=== PATIENT | male | born 1945 | race Caucasian/White ===

== ENCOUNTER → 2019-11-18 10:36 | Outpatient (BNVA) | payer BC, SELFPAY | PROVIDERS: PCP Family Medicine; Visit Provider Otolaryngology | DX: H93.92 Unspecified disorder of left ear (principal); H92.02 Otalgia, left ear; J34.2 Deviated nasal septum | CPT/HCPCS: 99203; 99214 ==

== ENCOUNTER 2019-11-27 08:13 | Outpatient (CLI) | payer BC, SELFPAY ==
--- NOTE | 2019-11-27 08:21 | CT_ITS ---
WS: [id number] CT TEMPORAL BONES TECHNIQUE: Noncontrast CT of the temporal bones with coronal and sagittal reformatted images. CLINICAL INFORMATION: Ear problem COMPARISON: None. DLP: 1086.[address] scans at [facility] use at least one of these dose optimization techniques: automat ed exposure control; mA and/or kV adjustment per patient size (includes targeted exams where dose is matched to clinical indication); or iterative reconstruction. FINDINGS: Right mastoid air cells well aerated. Slight mucosal thickening left mastoid tip. Paranasal sinuses are well aerated. Mild mucosal thickening with scattered fluid in the ethmoid air cells. Fro ntal sinuses are well aerated. A few small retention cysts in the sphenoid sinuses. RIGHT: Mastoid air cells are well aerated. Normal external auditory canal. Ossicles are normal in appearance . Middle ear is well aerated. Normal tegmen tympani. Semicircular canals and cochlea are normal in ap pearance. Prussak's space is normal. Normal inner ear structures. Normal vestibular aqueduct. Facial nerve recess is normal. LEFT: Mucosal thickening left mastoid tip. Normal external auditory canal. Ossicles are normal in appearanc e. Middle ear is well aerated. Mild thickening along the inferior tympanic membrane likely inflammato ry. Normal tegmen tympani. Semicircular canals and cochlea are normal in appearance. Prussak's space is normal. Normal inner ear structures. Normal vestibular aqueduct. Facial nerve recess is normal. Visualized intracranial contents and posterior fossa are normal. CT/CT temporal bone wo con* [id number] IMPRESSION: 1. Right mastoid air cells are well aerated. Mild mucosal thickening left mast oid tip. 2. Inner ear structures are normal bilaterally. Middle ear is well aerated. 3. Normal ossicles bilaterally. 4. Mild mucosal thickening along the left hepatic membrane likely inflammatory . Right tympanic membrane is normal.
== END 2019-11-27 08:14 | disposition home or self-care (01) ==
LOC: CT 08:17
PROVIDERS: Family Provider Family Medicine; Visit Provider Otolaryngology
DX: H93.90 Unspecified disorder of ear, unspecified ear (principal)
CPT/HCPCS: 70480

== ENCOUNTER 2019-12-02 13:01 | Outpatient (CLI) | payer BC, SELFPAY ==
[2019-12-02 14:34] LABS: Alanine Aminotransferase 29 U/L (0-41); Albumin Level 4.3 g/dL (3.5-5.2); Alkaline Phosphatase 80 IU/L (40-130); Anion Gap 13.5 (5-19); Aspartate Amino Transferase 23 U/L (0-40); Blood Urea Nitrogen 15 mg/dL (8-23); Calcium 10.1 mg/dL (8.5-10.5); Carbon Dioxide 30 mmol/L (22-29); Chloride 96 mmol/L (98-107); Globulin 2.5 g/dL (1.3-4.6); Glucose 129 mg/dL (65-115); Potassium 3.5 mmol/L (3.5-5.1); Sodium 136 mmol/L (136-145); Total Bilirubin 0.7 mg/dL (0.15-1.2); Total Protein 6.8 g/dL (6.6-8.7)
--- NOTE | 2019-12-02 14:47 | ONC FU_ITS ---
Dr. Awan follow up note Patient: Gurdeep Marie < Unit #: [id number]: 1945 Dicatated By: Rivera Awan M.D.Date of Visit:Dec 02, 2019 Onc Med Follow-up/Prog Note History of Present Illness: Mr Marie is a 74-year-old gentleman with year-long history of progressive PSA level. He recently underwent TRUSP/biopsy on 04/04/2018 which showed 4 out of 12 cores positive, 100% of each core positive with [place] 4+3 and [place] 3+4 and [place] 4+4. At the time of diagnosis his PSA was 10.7. Subsequently patient underwent CT scan of the pelvis which shows no evidence of metastatic disease and also had bone scan which was negative for metastatic disease also. 3 monthly dose of Zoladex was started on 06/04/2018. Along with daily Casodex in a neoadjuvant fashion later on concurrent radiation therapy to prostate gland was added which he completed on 10/27/2018 And Casodex was discontinued on 12/01/2018 While continue with 3 monthly Zoladex Came for follow-up, denies any specific complaints except off and on night sweats otherwise tolerating Zoladex well. No fever or chills no nausea or vomiting no hematuria no dysuria. Medications: Advair Diskus (100-50 mcg/dose) Aerosol Powder, Breath Activated Inhalation PRN, Aspirin 1 (81 mg) Tablet Oral daily, Atorvastatin Calcium 1 Tablet (of 80 mg) Oral daily, Brimonidine Tartrate Solution Ophthalmic daily, Cetirizine HCl 1 Tablet (of 10 mg) Oral daily, hydroCHLOROthiazide 1 Tablet (of 25 mg) Oral daily, Latanoprost Solution Ophthalmic daily, ProAir HFA 2 puff(s) (of 108 (90 base) mcg/act) Aerosol, solution Inhalation PRN, Tamsulosin HCl 1 Capsule (of 0.4 mg) Oral daily, Valsartan 1 Tablet (of 160 mg) Oral daily Allergies: No Known Allergies. Review of Systems: Constitutional - Appetite is good and weight is stable. No fever, chills, hot flashes, or night sweats. Energy level is fair, ENMT - No sinus congestion/drainage. No mouth sores. No sore throat or difficulty swallowing, Hematologic/Lymphatic - No abnormal bruising or bleeding, Respiratory - No shortness of breath. No cough. No pleuritic pain or hemoptysis, Cardiovascular - No angina pain. No palpitations, Gastrointestinal - No nausea or vomiting. No heartburn or acid reflux. No diarrhea or constipation. No blood in the stool or black stools, Genitourinary (M) - No dysuria or hematuria. No urinary frequency. No urgency or incontinence, Musculoskeletal - No joint or bone pain, Neurologic - No headache or dizziness. No numbness/paresthesias or other focal neurologic symptoms, Psychiatric - No anxiety or depression. No insomnia. Vital Signs: Performed on Dec 02, 2019 14:03 Height - 71.00 in Weight - 214.4 lbs (LOW) BSA - 2.17 sq.m BMI - 29.90 Temperature - 97.7 F (LOW) Pulse - 77 /min Respiration - 18 /min BP - 131/78 mm(hg) O2 Sat - 97 % Pain - 0 Performance Status: 0 - Fully active, able to carry on all predisease activities without restrictions. (ECOG) Physical Examination: ENMT - No oral exudates, ulcers, masses, thrush or mucositis. Oropharynx clear. Tongue normal, Respiratory - Lungs are clear to auscultation without rhonchi or wheezing, Cardiovascular - Regular rate and rhythm of heart, Abdomen - Non-tender, non-distended, Good bowel sounds. No guarding or rebound tenderness. No pulsatile masses, Extremities - no edema. Lab/Imaging: Test performed on Sep 02, 2019 13:20 Sodium 137 mmol/L Potassium 3.8 mmol/L Chloride 99 mmol/L CO2 28 mmol/L Anion Gap 13.8 BUN 22 mg/dL Creatinine 0.9 mg/dL Cr Clearance (Est) 99.33 mL/min Glucose 123 mg/dl Calcium 9.8 mg/dL Protein, Total 7.0 g/dL Albumin 4.6 g/dL Globulin 2.4 gm/dL Bilirubin, Total 0.7 mg/dL ALT (SGPT) 28 U/L AST (SGOT) 23 U/L Alkaline Phosphatase 73 U/L PSA < 0.02 ng/mL Impression: Adenocarcinoma the prostate status post TRUSP/biopsy done on 04/04/2018 and final pathology report showed 4 out of 12 positive cores on with 100% involvement ( left lateral apex [place] score 4+3, left lateral mid and left lateral base [place] score 4+4, left apex [place] score 3+4) PSA was 10.7 the time of diagnosis T2 Nx Mx high risk e.g. large-volume and [place] [address] scan of abdomen pelvis done on 05/06/2018 showed no evidence of metastatic disease Bone scan done on 05/06/2018 showed no evidence of metastatic disease Mr Marie was started on combined androgen blockade with 3 month Zoladex and daily Casodex on 06/04/2018. His treatment plan is neoadjuvant and radiation treatment has included. He started radiation to the prostate on 08/25/2018 and.And conclude her radiation on 10/27/2018 And repeat PSA on on 12/02/2018 was 0.01 So daily Casodex was discontinued on 12/02/2018, while continued with 3 monthly dose of Zoladex Plan: Discussed with patient regarding his questionable concern, his lab including PSA, is pendin Clinically, there is no signs symptom suggestive of recurrence of disease, tolerating 3 monthly Zoladex well , but with expected side effects e.g. occasionally hot flashes otherwise tolerating well. We'll proceed with next 3 monthly dose today and then return to clinic in 3 months with CMP PSA Signed By: Rivera Awan M.D. <<Signature on File>>
[2019-12-02 14:56] LABS: Prostate Specific Antigen < 0.02 ng/mL (0-4)
[2019-12-02] MEDS: lidocaine 1% INJ 20 mL INJECTION (14:56)
[2019-12-02] MEDS: goserelin acetate 10.8 mg Implant IM (15:02)
--- NOTE | 2019-12-02 15:07 | ONCRAD EPV_ITS ---
Radiation Oncology Established Patient Visit Patient: Cris MR#: [id number] : 1945> Age: 74> Sex: Male> Dictated by: Dr. Hong Rodrigues Date of Service: 12/02/2019 Referring Physician(s) : Dr. David Miner Diagnosis: C61 - Malignant neoplasm of prostate, Diagnosed 04/04/2018 (Active) Stage X, T2a, N0, M0 Radiotherapy to Date: Course: Prostate Treatment Site: [id number] Ref. ID: [id number] Energy: 6X Dose/Fx (cGy): 180 #Fx: 25 / 25 Dose Correction (cGy): 0 Total Dose (cGy): 4,500 Start Date: 08/25/2018 End Date: 10/01/2018 Elapsed Days: 37 Course: Prostate Treatment Site: [id number] Ref. ID: [id number] Energy: 6X Dose/Fx (cGy): 200 #Fx: 5 / 5 Dose Correction (cGy): 0 Total Dose (cGy): 1,000 Start Date: 10/02/2018 End Date: 10/08/2018 Elapsed Days: 6 Course: Prostate Treatment Site: [id number] Ref. ID: [id number] Energy: 6X Dose/Fx (cGy): 200 #Fx: 4 / 4 Dose Correction (cGy): 0 Total Dose (cGy): 800 Start Date: 10/09/2018 End Date: 10/15/2018 Elapsed Days: 6 Course: Prostate Treatment Site: [id number] Ref. ID: [id number] Energy: 6X Dose/Fx (cGy): 200 #Fx: 8 / 8 Dose Correction (cGy): 0 Total Dose (cGy): 1,600 Start Date: 10/16/2018 End Date: 10/27/2018 Elapsed Days: 11 Chief Complaint / History of Present Illness: The patient is a 73 year old gentleman with a recently diagnosed T2a, N0, M0 adenocarcinoma of the prostate, [place] score 4+4, PSA 10.7 ng/ml, high risk disease. He received combination therapy with ADT + EBRT to a total dose of 79Gy. The patient is doing well. He notes urinary frequency and nocturia but denies dysuria, hematuria, incontinence, urgency, rectal irritation and bleeding. He continues ADT and has some fatigue but denies hot flash. His PSA today is pending. Last one was 0.02. Current Medications: Advair Diskus, aspirin, atorvastatin Calcium, brimonidine Tartrate, casodex, cetirizine HCl, hydroCHLOROthiazide, latanoprost, proAir HFA, tamsulosin HCl, valsartan. Allergies: No Known Allergies Current Complaints / Review of Systems: The 12 point review of system is negative except as described in the above history. Vital Signs: Performed on 12/02/2019 2:03 PM Height - 71.00 in, Weight - 214.4 lbs (low), BSA - 2.17 sq.m, BMI - 29.90, Temperature - 97.7 f (low), Pulse - 77 /min, Respiration - 18 /min, O2 Sat - 97 %, Pain - 0 and BP - 131/ 78 mm(hg). Physical Exam: General: Alert and oriented x 3. No acute distress. HEENT: Normocephalic, atraumatic. Extraocular Movements Intact: Pupils Equal, Round, Reactive to Light and Accommodation: Sclerae anicteric. Oral cavity is clear without lesions, masses or ulcers. NECK: Supple without supraclavicular or jugular lymphadenopathy. LUNGS: Clear to auscultation bilaterally without rales, rhonchi or wheeze. HEART: Regular rate and rhythm, normal S1 and S2 without murmur, gallop or rub. MUSCULOSKELETAL: No tenderness or percussion pain over the axial skeleton, scapulae or pelvis. ABDOMEN: Soft, nontender, nondistended without masses or organomegaly. Bowel sounds are present. EXTREMITIES: No peripheral edema is identified. Limited motor and sensory examination are grossly intact and symmetric bilaterally. NEUROLOGIC: Cranial nerves II ???XII are grossly intact. Normal sensation, strength 5/5 in all extremities, normal gait, no ataxia. Performance Status: ECOG 1 Lab: PSA pending Pathology: Adenocarcinoma of prostate Imaging: none pending Impression/plan: There is no evidence of recurrence or progression of disease and no evidence of late radiation toxicities. The patient will continue ADT. He will repeat PSA and follow up with us in 4 months. Signed by: 12/02/2019 3:06:24 PM <<Signature on File>> CPT Code: CPT Code: Signed By: Dr. Hong Rodrigues, 12/02/2019 3:06:25 PM <<Signature on File>>
== END 2019-12-02 13:02 | disposition home or self-care (01) ==
LOC: ONCMED 13:05
PROVIDERS: Absent Provider Radiology Radiation Oncology; Family Provider Family Medicine; Visit Provider Internal Medicine Hematology & Oncology
DX: C61 Malignant neoplasm of prostate (principal); Z79.818 Long term (current) use of other agents affecting estrogen receptors and estrogen levels; Z79.899 Other long term (current) drug therapy; Z92.3 Personal history of irradiation
CPT/HCPCS: 80053; 84153; 96372; 96402; 99213; 99214; J2001; J9202

== ENCOUNTER → 2019-12-03 13:48 | Outpatient (BNVA) | payer BC, SELFPAY | PROVIDERS: Family Provider Family Medicine; Visit Provider Otolaryngology | DX: H69.82 Other specified disorders of Eustachian tube, left ear (principal) | CPT/HCPCS: 99213; 99214 ==

== ENCOUNTER → 2019-12-09 06:01 | Day surgery (SDC) | payer BC, SELFPAY ==
[2019-12-08 14:40] VITALS: BMI 29.8
[2019-12-09 06:41] VITALS: BP 130/82; PULSE 61; RESP 18; TEMP 36.1; O2SAT 96
--- NOTE | 2019-12-09 06:42 | W.PM.OPSUD ---
Surgery/Procedure H&P Update DATE OF PROCEDURE: December 09, 2019 DATE H&P PERFORMED: 12/03/19 H&P UPDATE INFORMATION: I have reviewed H&P completed within last 30 days, I have examined patient prior to procedure and No changes to prior documentation PREOP DIAGNOSIS: eustachian tube dysfunction PLANNED PROCEDURE: Operation Date: 12/09/19 07:20 Proposed Procedures p Myringotomy and Tubes [id number] H69.82(Left) - Jerome Gómez MD
[2019-12-09] MEDS: sodium chloride 0.9% 1,000 ML 30 ML IV (06:44)
--- NOTE | 2019-12-09 07:43 | SUR.PREOP ---
patient not having procedure today. Pt will reschedule when he has a ride for post op.
== END ==
PROVIDERS: Family Provider Family Medicine; Visit Provider Otolaryngology
PROC: (CPT 69420; principal; 2019-12-09 07:20)
DX: Z53.9 Procedure and treatment not carried out, unspecified reason (principal)
CPT/HCPCS: 12345; J7030

== ENCOUNTER 2020-03-04 08:58 | Outpatient (CLI) | payer BC, SELFPAY ==
[2020-03-04 09:50] LABS: Prostate Specific Antigen < 0.02 ng/mL (0-4)
[2020-03-04 10:01] LABS: Alanine Aminotransferase 26 U/L (0-41); Albumin Level 4.2 g/dL (3.5-5.2); Alkaline Phosphatase 69 IU/L (40-130); Anion Gap 16.2 (5-19); Aspartate Amino Transferase 25 U/L (0-40); Blood Urea Nitrogen 14 mg/dL (8-23); Calcium 9.3 mg/dL (8.5-10.5); Carbon Dioxide 24 mmol/L (22-29); Chloride 108 mmol/L (98-107); Glucose 122 mg/dL (65-115); Osmolality Calculated 296 mOsm/kg (285-295); Potassium 4.2 mmol/L (3.5-5.1); Sodium 144 mmol/L (136-145); Total Bilirubin 0.4 mg/dL (0.15-1.2); Total Protein 6.2 g/dL (6.6-8.7)
--- NOTE | 2020-03-04 11:07 | ONC FU_ITS ---
Dr. Awan follow up note Patient: Gurdeep Marie Unit #: [id number]: 1945 Dicatated By: Rivera Awan M.D.Date of Visit:Mar 04, 2020 Onc Med Follow-up/Prog Note History of Present Illness: Mr Marie is a 75-year-old gentleman with year-long history of progressive PSA level. He recently underwent TRUSP/biopsy on 04/04/2018 which showed 4 out of 12 cores positive, 100% of each core positive with [place] 4+3 and [place] 3+4 and [place] 4+4. At the time of diagnosis his PSA was 10.7. Subsequently patient underwent CT scan of the pelvis which shows no evidence of metastatic disease and also had bone scan which was negative for metastatic disease also. 3 monthly dose of Zoladex was started on 06/04/2018. Along with daily Casodex in a neoadjuvant fashion later on concurrent radiation therapy to prostate gland was added which he completed on 10/27/2018 And Casodex was discontinued on 12/01/2018 While continue with 3 monthly Zoladex Came for follow-up, denies any specific complaints, no night sweats, no hot flashes, no fever or chills, no breast tenderness, no diarrhea or constipation, no abdominal pain, tolerating Zoladex well Medications: Advair Diskus (100-50 mcg/dose) Aerosol Powder, Breath Activated Inhalation PRN, Aspirin 1 (81 mg) Tablet Oral daily, Atorvastatin Calcium 1 Tablet (of 80 mg) Oral daily, Brimonidine Tartrate Solution Ophthalmic daily, Cetirizine HCl 1 Tablet (of 10 mg) Oral daily, hydroCHLOROthiazide 1 Tablet (of 25 mg) Oral daily, Latanoprost Solution Ophthalmic daily, ProAir HFA 2 puff(s) (of 108 (90 base) mcg/act) Aerosol, solution Inhalation PRN, Tamsulosin HCl 1 Capsule (of 0.4 mg) Oral daily, Valsartan 1 Tablet (of 160 mg) Oral daily Allergies: No Known Allergies. Review of Systems: Constitutional - Appetite is good and weight is stable. No fever, chills, hot flashes, or night sweats. Energy level is fair, ENMT - No sinus congestion/drainage. No mouth sores. No sore throat or difficulty swallowing, Hematologic/Lymphatic - No abnormal bruising or bleeding, Respiratory - No shortness of breath. No cough. No pleuritic pain or hemoptysis, Cardiovascular - No angina pain. No palpitations, Gastrointestinal - No nausea or vomiting. No heartburn or acid reflux. No diarrhea or constipation. No blood in the stool or black stools, Genitourinary (M) - No dysuria or hematuria. No urinary frequency. No urgency or incontinence, Musculoskeletal - No joint or bone pain, Neurologic - No headache or dizziness. No numbness/paresthesias or other focal neurologic symptoms, Psychiatric - No anxiety or depression. No insomnia. Vital Signs: Performed on Mar 04, 2020 10:45 Height - 71.00 in Weight - 221.0 lbs (HIGH) BSA - 2.20 sq.m BMI - 30.82 (HIGH) Temperature - 97.6 F (LOW) Pulse - 61 /min Respiration - 18 /min BP - 137/87 mm(hg) O2 Sat - 98 % Pain - 0 Performance Status: 0 - Fully active, able to carry on all predisease activities without restrictions. (ECOG) Physical Examination: ENMT - No mouth sores, no thrush, Respiratory - Lungs are clear, Cardiovascular - Regular rate and rhythm of heart, Abdomen - Soft, bowel sounds present. Extremities , no visible edema or rash Lab/Imaging: Test performed on Mar 04, 2020 09:15 Sodium 144 mmol/L Potassium 4.2 mmol/L Chloride 108 mmol/L CO2 24 mmol/L Anion Gap 16.2 BUN 14 mg/dL Creatinine 1.1 mg/dL Cr Clearance (Est) 82.2700 mL/min Glucose 122 mg/dL Calcium 9.3 mg/dL Protein, Total 6.2 g/dL Albumin 4.2 g/dL Globulin 2.0 g/dL Bilirubin, Total 0.4 mg/dL ALT (SGPT) 26 U/L AST (SGOT) 25 U/L Alkaline Phosphatase 69 IU/L PSA < 0.02 ng/mL Impression: Adenocarcinoma the prostate status post TRUSP/biopsy done on 04/04/2018 and final pathology report showed 4 out of 12 positive cores on with 100% involvement ( left lateral apex [place] score 4+3, left lateral mid and left lateral base [place] score 4+4, left apex [place] score 3+4) PSA was 10.7 the time of diagnosis T2 Nx Mx high risk e.g. 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 CT scan of abdomen pelvis done on 05/06/2018 showed no evidence of metastatic disease Bone scan done on 05/06/2018 showed no evidence of metastatic disease Mr Marie was started on combined androgen blockade with 3 month Zoladex and daily Casodex on 06/04/2018. His treatment plan is neoadjuvant and radiation treatment has included. He started radiation to the prostate on 08/25/2018 and.And conclude her radiation on 10/27/2018 And repeat PSA on on 12/02/2018 was 0.01 So daily Casodex was discontinued on 12/02/2018, while continued with 3 monthly dose of Zoladex Plan: Discussed with patient regarding his labs CMP with him normal limits PSA less than 0.2 Clinically, patient doing well with no signs symptom suggestive of disease progression, tolerating adjuvant therapy with 3 monthly Zoladex, well but with expected side effects. We will proceed with the next 3 monthly dose of Zoladex today and return to clinic in 3 months with PSA. Signed By: Rivera Awan M.D. <<Signature on File>>
[2020-03-04] MEDS: lidocaine 1% INJ 20 mL INJECTION (11:20)
[2020-03-04] MEDS: goserelin acetate 10.8 mg Implant IM (11:30)
== END 2020-03-04 08:59 | disposition home or self-care (01) ==
PROVIDERS: PCP Family Medicine; Visit Provider Internal Medicine Hematology & Oncology
DX: C61 Malignant neoplasm of prostate (principal); Z79.818 Long term (current) use of other agents affecting estrogen receptors and estrogen levels
CPT/HCPCS: 80053; 84153; 96372; 96402; 99214; J2001; J9202

== ENCOUNTER 2020-06-07 12:18 | Outpatient (CLI) | payer BC, SELFPAY ==
--- NOTE | 2020-06-07 14:46 | ONC FU_ITS ---
[facility] Patient Note Patient: Gurdeep Marie Unit #: [id number]: 1945 Dictated By: Keshawn SteinDate of Visit: Jun 07, 2020 Onc MED Follow-Up/Prog Note Chief Complaint: Prostrate cancer History of Present Illness: Mr Marie is a 75-year-old gentleman with year-long history of progressive PSA level. He recently underwent TRUSP/biopsy on 04/04/2018 which showed 4 out of 12 cores positive, 100% of each core positive with [place] 4+3 and [place] 3+4 and [place] 4+4. At the time of diagnosis his PSA was 10.7. Subsequently patient underwent CT scan of the pelvis which shows no evidence of metastatic disease and also had bone scan which was negative for metastatic disease also. 3 month dose of Zoladex was started on 06/04/2018. Along with daily Casodex in a neoadjuvant fashion. Later on, concurrent radiation therapy to prostate gland was added which he completed on 10/27/2018. Casodex was discontinued on 12/01/2018. He does continue with 3 monthly Zoladex. He has had no signs of disease progression and tolerates the Zoladex well. Mr. Marie is here today for follow-up. He is due for Zoladex today as well. He has no new concerns. He denies any fever or chills. He has had no mouth sores, sore throat or difficulty swallowing. He denies any changes with his breathing. He denies orthopnea. He states he has not had any chest pain or palpitations. He denies any changes with his urinary flow. He states the Flomax is working well for him with no changes. He denies any lower extremity edema. He denies any bone pain. 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 He states he sweats a lot with the gardening but it stays hydrated and is tolerated this well. He has no new concerns today. His ECOG is 0. Past Medical History: Asthma Hyperlipidemia Hypertension Past Surgical History: Back surgery x 2 Cataract excision Right toe Tonsillectomy Trusp Colonoscopy in 2017 Allergies: No Known Allergies. Medications: Advair Diskus (100-50 mcg/dose) Aerosol Powder, Breath Activated Inhalation PRN Aspirin 1 (81 mg) Tablet Oral daily Atorvastatin Calcium 1 Tablet (of 80 mg) Oral daily Brimonidine Tartrate Solution Ophthalmic daily Cetirizine HCl 1 Tablet (of 10 mg) Oral daily hydroCHLOROthiazide 1 Tablet (of 25 mg) Oral daily Latanoprost Solution Ophthalmic daily ProAir HFA 2 puff(s) (of 108 (90 base) mcg/act) Aerosol, solution Inhalation PRN Tamsulosin HCl 1 Capsule (of 0.4 mg) Oral daily Valsartan 1 Tablet (of 160 mg) Oral daily Family History: Mr. Marie's mother is : heart disease at age 84. Social History: Mr. Marie is and he is retired. Mr. Marie has never smoked. He drinks daily. Review Of Symptoms: Constitutional Denies fevers, chills, night sweats, excessive fatigue or weight loss. Allergic/Immunologic No reactions. Eyes Denies significant visual changes. No diplopia. No amaurosis. ENMT Denies changes in hearing, sore throat, mouth sores, difficulty or changes in swallowing ability, and/or sinus drainage. Endocrine No diabetes, thyroid disease or hormone replacement. Denies hot flashes or night sweats. Hematologic/Lymphatic Denies easy bruising or bleeding. The patient denies any tender or palpable lymph nodes. Respiratory Denies dyspnea on exertion, chest pain, cough or hemoptysis. Denies orthopnea. Cardiovascular Denies anginal chest pain, palpitations or orthopnea. Gastrointestinal Denies nausea, vomiting, diarrhea, GI bleeding, or constipation. Denies change in bowel habits and/or stool color, no heartburn or early satiety. Genitourinary (M) Denies hematuria, dysuria, increased frequency, urgency, hesitancy or incontinence. Musculoskeletal Denies joint pain, swelling or redness. No decreased range of motion. Integumentary Denies chronic rashes, inflammation, ulcerations or skin changes. Neurologic Denies headache, blurred vision, and no areas of focal weakness or numbness. Normal gait. No sensory problems. Psychiatric Denies insomnia, depression, estelle or mood swings. Vital Signs: Performed on Jun 07, 2020 14:19 Height - 71.00 in Weight - 216.6 lbs (LOW) BSA - 2.18 sq.m BMI - 30.21 (HIGH) Temperature - 98.3 F (LOW) Pulse - 67 /min Respiration - 20 /min BP - 139/86 mm(hg) O2 Sat - 97 % Pain - 0,0 - Fully active, able to carry on all predisease activities without restrictions. (ECOG) Physical Examination: Constitutional Alert, oriented, no acute distress. Skin pink, warm and dry. Head Normocephalic; atraumatic. Eyes Conjunctivae and sclerae are clear and without icterus. Pupils are reactive and equal. Neck Supple without masses or thyromegaly. No jugular venous distension. Hematologic/Lymphatic No petechiae or purpura. Respiratory Lungs are clear to auscultation without rhonchi or wheezing. Cardiovascular Regular rate and rhythm of heart without murmurs,clicks, gallops or rubs. Chest Chest is symmetric without chest wall deformities. Back/Spine Non-tender to palpation. Extremities No visible deformities, no cyanosis, clubbing or edema. Musculoskeletal No tenderness or swelling, normal range of motion without obvious weakness. Integumentary No rashes or lesions. Neurologic No sensory or motor deficits, normal cerebellar function, normal gait. Psychiatric Alert and oriented times three. Coherent speech. Verbalizes understanding of our discussions today. Laboratory:Test performed on Jun 07, 2020 12:28 PSA 0.010 ng/mL Test performed on Mar 04, 2020 09:15 Sodium 144 mmol/L Potassium 4.2 mmol/L Chloride 108 mmol/L CO2 24 mmol/L Anion Gap 16.2 BUN 14 mg/dL Creatinine 1.1 mg/dL Cr Clearance (Est) 82.2700 mL/min Glucose 122 mg/dL Calcium 9.3 mg/dL Protein, Total 6.2 g/dL Albumin 4.2 g/dL Globulin 2.0 g/dL Bilirubin, Total 0.4 mg/dL ALT (SGPT) 26 U/L AST (SGOT) 25 U/L Alkaline Phosphatase 69 IU/L Impression: Adenocarcinoma the prostate status post TRUSP/biopsy done on 04/04/2018 and final pathology report showed 4 out of 12 positive cores on with 100% involvement ( left lateral apex [place] score 4+3, left lateral mid and left lateral base [place] score 4+4, left apex [place] score 3+4) PSA was 10.7 the time of diagnosis T2 Nx Mx high risk e.g. large-volume and [place] [address] scan of abdomen pelvis done on 05/06/2018 showed no evidence of metastatic disease Bone scan done on 05/06/2018 showed no evidence of metastatic disease Mr Marie was started on combined androgen blockade with 3 month Zoladex and daily Casodex on 06/04/2018. His treatment plan is neoadjuvant and radiation treatment has included. He started radiation to the prostate on 08/25/2018 and.And conclude her radiation on 10/27/2018 And repeat PSA on on 12/02/2018 was 0.01 So daily Casodex was discontinued on 12/02/2018, while continued with 3 monthly dose of Zoladex. He has tolerated it well with no signs of disease progression. Plan: 1. Proceed with Zoladex today as scheduled. 2. PSA from today was reviewed in detail and discussed with Mr. Marie and a copy was given to him. He was 0.010. 3. Continue Flomax as it is working well for him. 4. We will plan to see him back in 3 months with CBC CMP PSA. 5. He states he is current on pneumonia shots but does not think he will pursue a flu shot this year. He states he will do the coronavirus shot if it becomes available. 6. He was directed to contact us in the interim should questions or problems arise. Signed By: Keshawn Stein-, AOCNP Rivera Awan MD <<Signature on File>>
[2020-06-07] MEDS: lidocaine 1% INJ 20 mL INJECTION (15:00)
[2020-06-07] MEDS: goserelin acetate 10.8 mg Implant IM (15:07)
== END 2020-06-07 12:19 | disposition home or self-care (01) ==
LOC: ONCMED 12:23
PROVIDERS: PCP Family Medicine; Visit Provider Nurse Practitioner
DX: C61 Malignant neoplasm of prostate (principal); E78.5 Hyperlipidemia, unspecified; I10 Essential (primary) hypertension; Z79.818 Long term (current) use of other agents affecting estrogen receptors and estrogen levels
CPT/HCPCS: 36415; 84153; 96372; 96402; 99214; J9202

== ENCOUNTER 2020-09-19 07:49 | Outpatient (CLI) | payer BC, SELFPAY ==
[2020-09-19 08:51] LABS: Basophils % 0.3 %; Eosinophils # 0.1 10^3/uL (0.0-0.8); Eosinophils % 1.4 %; Hematocrit 36.6 % (42.0-52.0); Hemoglobin 12.2 g/dL (11.7-16.6); Lymphocytes # 0.9 10^3/uL (0.8-4.8); Mean Corpuscular HGB Conc 33.3 g/dL (30.0-36.0); Mean Corpuscular Hemoglobin 30.6 pg (28.0-34.0); Mean Corpuscular Volume 91.7 fL (80-94); Mean Platelet Volume 10.8 fL (7.4-10.4); Monocytes # 0.5 10^3/uL (0.2-0.9); Monocytes % 8.5 %; Neutrophils # 4.26 10^3/uL (1.8-7.7); Neutrophils % 74.3 %; Nucleated Red Blood Cells % 0 %; Platelet Count 156 10^3/cmm (130-400); Red Blood Count 3.99 10^6/uL (4.1-5.3); Red Cell Distribution Width 13.4 % (12.1-15.1); White Blood Count 5.7 10^3/uL (4.0-10.0)
[2020-09-19 09:07] LABS: Alanine Aminotransferase 37 U/L (0-41); Albumin Level 4.2 g/dL (3.5-5.2); Alkaline Phosphatase 67 IU/L (40-130); Anion Gap 12.1 (5-19); Aspartate Amino Transferase 27 U/L (0-40); Blood Urea Nitrogen 19 mg/dL (8-23); Calcium 9.5 mg/dL (8.5-10.5); Carbon Dioxide 29 mmol/L (22-29); Chloride 102 mmol/L (98-107); Globulin 2.2 g/dL (1.3-4.6); Glucose 116 mg/dL (65-115); Osmolality Calculated 291 mOsm/kg (285-295); Potassium 4.1 mmol/L (3.5-5.1); Sodium 139 mmol/L (136-145); Total Bilirubin 0.7 mg/dL (0.15-1.2); Total Protein 6.4 g/dL (6.6-8.7)
[2020-09-19 09:53] LABS: Prostate Specific Antigen < 0.006 ng/mL (0-4)
--- NOTE | 2020-09-19 10:26 | ONC FU_ITS ---
Dr. Awan follow up note Patient: Gurdeep Marie Unit #: [id number]: 1945 Dicatated By: Rivera Awan M.D.Date of Visit:Sep 19, 2020 Onc Med Follow-up/Prog Note History of Present Illness: Mr Marie is a 75-year-old gentleman with year-long history of progressive PSA level. He recently underwent TRUSP/biopsy on 04/04/2018 which showed 4 out of 12 cores positive, 100% of each core positive with Riner 4+3 and Riner 3+4 and Riner 4+4. At the time of diagnosis his PSA was 10.7. Subsequently patient underwent CT scan of the pelvis which shows no evidence of metastatic disease and also had bone scan which was negative for metastatic disease also. 3 month dose of Zoladex was started on 06/04/2018. Along with daily Casodex in a neoadjuvant fashion. Later on, concurrent radiation therapy to prostate gland was added which he completed on 10/27/2018. Casodex was discontinued on 12/01/2018. He does continue with 3 monthly Zoladex. He has had no signs of disease progression and tolerates the Zoladex well. Came for follow-up, denies any specific complaints, no fever chills, no nausea or vomiting, no diarrhea or constipation, occasionally hot flashes otherwise tolerating Zoladex very well . Medications: Advair Diskus (100-50 mcg/dose) Aerosol Powder, Breath Activated Inhalation PRN, Aspirin 1 (81 mg) Tablet Oral daily, Atorvastatin Calcium 1 Tablet (of 80 mg) Oral daily, Brimonidine Tartrate Solution Ophthalmic daily, Cetirizine HCl 1 Tablet (of 10 mg) Oral daily, hydroCHLOROthiazide 1 Tablet (of 25 mg) Oral daily, Latanoprost Solution Ophthalmic daily, ProAir HFA 2 puff(s) (of 108 (90 base) mcg/act) Aerosol, solution Inhalation PRN, Tamsulosin HCl 1 Capsule (of 0.4 mg) Oral daily, Valsartan 1 Tablet (of 160 mg) Oral daily Allergies: No Known Allergies. Review of Systems: Constitutional - Appetite is good and weight is stable. No fever, chills, hot flashes, or night sweats. Energy level is fair, ENMT - No sinus congestion/drainage. No mouth sores. No sore throat or difficulty swallowing, Hematologic/Lymphatic - No abnormal bruising or bleeding, Respiratory - No shortness of breath. No cough. No pleuritic pain or hemoptysis, Cardiovascular - No angina pain. No palpitations, Gastrointestinal - No nausea or vomiting. No heartburn or acid reflux. No diarrhea or constipation. No blood in the stool or black stools, Genitourinary (M) - No dysuria or hematuria. Positve for urinary frequency. No urgency or incontinence, Musculoskeletal - No joint or bone pain, Neurologic - No headache or dizziness. No numbness/paresthesias or other focal neurologic symptoms, Psychiatric - No anxiety or depression. No insomnia. Vital Signs: Performed on Sep 19, 2020 10:03 Height - 71.00 in Weight - 218.2 lbs (HIGH) BSA - 2.19 sq.m BMI - 30.43 (HIGH) Temperature - 97.2 F (LOW) Pulse - 63 /min Respiration - 18 /min BP - 145/83 mm(hg) (HIGH) O2 Sat - 98 % Pain - 0 Performance Status: 0 - Fully active, able to carry on all predisease activities without restrictions. (ECOG) Physical Examination: ENMT - No mouth sores, no thrush, no jaundice, Respiratory - Lungs are clear to auscultation, Cardiovascular - Regular rate and rhythm of heart, Abdomen - Soft, bowel sounds present, Extremities - No visible edema or rash. Lab/Imaging: Test performed on Sep 19, 2020 08:18 Sodium 139 mmol/L Potassium 4.1 mmol/L Chloride 102 mmol/L CO2 29 mmol/L Anion Gap 12.1 BUN 19 mg/dL Creatinine 1.2 mg/dL Cr Clearance (Est) 74.4600 mL/min Glucose 116 mg/dL Osmolality - Calculated 291 mOsm/kg Calcium 9.5 mg/dL Protein, Total 6.4 g/dL Albumin 4.2 g/dL Globulin 2.2 g/dL Bilirubin, Total 0.7 mg/dL ALT (SGPT) 37 U/L AST (SGOT) 27 U/L Alkaline Phosphatase 67 IU/L WBC 5.7 10 3/uL RBC 3.99 10 6/uL HGB 12.2 g/dL HCT 36.6 % MCV 91.7 fL MCH 30.6 pg MCHC 33.3 g/dL RDW 13.4 % Platelet Count 156 10 3/cmm MPV 10.8 fL Neutrophils 4.26 10 3/uL Lymphocytes 0.9 10 3/uL Monocytes 0.5 10 3/uL Eosinophils 0.1 10 3/uL Basophils 0.0 10 3/uL Neutrophil % 74.3 % Lymphocyte % 15.0 % Monocyte % 8.5 % Eosinophil % 1.4 % Basophils % 0.3 % NRBC % 0 % PSA < 0.006 ng/mL Impression: Adenocarcinoma the prostate status post TRUSP/biopsy done on 04/04/2018 and final pathology report showed 4 out of 12 positive cores on with 100% involvement ( left lateral apex Alma score 4+3, left lateral mid and left lateral base Riner score 4+4, left apex Riner score 3+4) PSA was 10.7 the time of diagnosis T2 Nx Mx high risk e.g. large-volume and Riner 8 L[address]ENSED PROSTHETIST/ORTHOTIST. CT scan of abdomen pelvis done on 05/06/2018 showed no evidence of metastatic disease Bone scan done on 05/06/2018 showed no evidence of metastatic disease Mr Marie was started on combined androgen blockade with 3 month Zoladex and daily Casodex on 06/04/2018. His treatment plan is neoadjuvant and radiation treatment has included. He started radiation to the prostate on 08/25/2018 and.And conclude her radiation on 10/27/2018 And repeat PSA on on 12/02/2018 was 0.01 So daily Casodex was discontinued on 12/02/2018, while continued with 3 monthly dose of Zoladex. He has tolerated it well with no signs of disease progression. Plan: Discussed with patient regarding his labs white blood count 5.7 hemoglobin 12.2 hematocrit 36.6 platelets 156,000 CMP within normal limits except creatinine 1.2 and PSA is less than 0.006 compared to 0.10 on June 07, 2020 Clinically, patient is doing well with no new signs symptoms suggestive of disease progression his follow-up lab work-up shows further improvement in his PSA level and mild renal insufficiency. We will continue with the next 3 monthly Zoladex today and then he will return to clinic in 3 months with a PSA. Signed By: Rivera Awan M.D. <<Signature on File>>
[2020-09-19] MEDS: lidocaine 1% INJ 20 mL INJECTION (10:30)
[2020-09-19] MEDS: goserelin acetate 10.8 mg Implant IM (10:40)
== END 2020-09-19 07:50 | disposition home or self-care (01) ==
LOC: ONCMED 07:51
PROVIDERS: PCP Family Medicine; Visit Provider Internal Medicine Hematology & Oncology
DX: C61 Malignant neoplasm of prostate (principal); N28.9 Disorder of kidney and ureter, unspecified; Z79.818 Long term (current) use of other agents affecting estrogen receptors and estrogen levels
CPT/HCPCS: 80053; 84153; 85025; 86900; 96372; 96402; 99214; J9202

== ENCOUNTER 2020-12-20 10:52 | Outpatient (CLI) | payer BC, SELFPAY ==
[2020-12-20 12:24] LABS: Prostate Specific Antigen 0.006 ng/mL (0-4)
[2020-12-20] MEDS: lidocaine 1% INJ 20 mL INJECTION (13:05)
[2020-12-20] MEDS: goserelin acetate 10.8 mg Implant IM (13:20)
--- NOTE | 2020-12-20 13:29 | ONC FU_ITS ---
[facility] Patient Note Patient: Gurdeep Marie Unit #: [id number]: 1945 Dictated By: Keshawn SteinDate of Visit: Dec 20, 2020 Onc MED Follow-Up/Prog Note Chief Complaint: Prostrate cancer History of Present Illness: Mr Marie is a 75-year-old gentleman with year-long history of progressive PSA level. He recently underwent TRUSP/biopsy on 04/04/2018 which showed 4 out of 12 cores positive, 100% of each core positive with Wausa 4+3 and Alma 3+4 and Wausa 4+4. At the time of diagnosis his PSA was 10.7. Subsequently patient underwent CT scan of the pelvis which shows no evidence of metastatic disease and also had bone scan which was negative for metastatic disease also. 3 month dose of Zoladex was started on 06/04/2018. Along with daily Casodex in a neoadjuvant fashion. Later on, concurrent radiation therapy to prostate gland was added which he completed on 10/27/2018. Casodex was discontinued on 12/01/2018. He does continue with 3 monthly Zoladex. He has had no signs of disease progression and tolerates the Zoladex well. Mr Marie is here today for followup. He has no new concerns today. He has had some lower chavez pain for about 3 days but that has, resolved on its own. He states he been working out in the yard and may have just hit it and not known it . He has had some muscle aches intermittently but that too has settled down currently. He denies any new shortness of breath orthopnea. He denies any nausea or vomiting. He has had no headaches or vision changes. He denies any bone pain. He states his breathing is normal for him. He states he does have some urinary frequency at night that comes and goes. We did discuss his medication regimen and noted that he does take HCTZ. He states that he does forget it in the morning sometimes and takes it at night. I encouraged him to try to take it no later than 2 or 3 as this may be affecting his urinary patterns at night. He verbalized understanding. He denies any lower extremity edema. He denies any changes in his bowel habits. His ECOG is 0. Past Medical History: Asthma Hyperlipidemia Hypertension Past Surgical History: Back surgery x 2 Cataract excision Right toe Tonsillectomy Trusp Colonoscopy in 2017 Allergies: No Known Allergies. Medications: Advair Diskus (100-50 mcg/dose) Aerosol Powder, Breath Activated Inhalation PRN Aspirin 1 (81 mg) Tablet Oral daily Atorvastatin Calcium 1 Tablet (of 80 mg) Oral daily Brimonidine Tartrate Solution Ophthalmic daily Cetirizine HCl 1 Tablet (of 10 mg) Oral daily hydroCHLOROthiazide 1 Tablet (of 25 mg) Oral daily Latanoprost Solution Ophthalmic daily ProAir HFA 2 puff(s) (of 108 (90 base) mcg/act) Aerosol, solution Inhalation PRN Tamsulosin HCl 1 Capsule (of 0.4 mg) Oral daily Valsartan 1 Tablet (of 160 mg) Oral daily Family History: Mr. Marie's mother is : heart disease at age 84. Social History: Mr. Marie is and he is retired. Mr. Marie has never smoked. He drinks daily. Review Of Symptoms: Constitutional Denies fevers, chills, night sweats, excessive fatigue or weight loss. Allergic/Immunologic No reactions. Eyes Denies significant visual changes. No diplopia. No amaurosis. ENMT Denies changes in hearing, sore throat, mouth sores, difficulty or changes in swallowing ability, and/or sinus drainage. Endocrine No diabetes, thyroid disease or hormone replacement. Denies hot flashes or night sweats. Hematologic/Lymphatic Denies easy bruising or bleeding. The patient denies any tender or palpable lymph nodes. Respiratory Denies dyspnea on exertion, chest pain, cough or hemoptysis. Denies orthopnea. Cardiovascular Denies anginal chest pain, palpitations or orthopnea. Gastrointestinal Denies nausea, vomiting, diarrhea, GI bleeding, or constipation. Denies change in bowel habits and/or stool color, no heartburn or early satiety. Genitourinary (M) Denies hematuria, dysuria, increased frequency, urgency, hesitancy or incontinence. Some urinary frequency at hs but not new and no worse than normal. Musculoskeletal Denies joint pain, swelling or redness. No decreased range of motion. Integumentary Denies chronic rashes, inflammation, ulcerations or skin changes. Neurologic Denies headache, blurred vision, and no areas of focal weakness or numbness. Normal gait. No sensory problems. Psychiatric Denies insomnia, depression, estelle or mood swings. Vital Signs: Performed on Dec 20, 2020 12:33 Height - 71.00 in Weight - 221.2 lbs (HIGH) BSA - 2.20 sq.m BMI - 30.85 (HIGH) Temperature - 97.3 F (LOW) Pulse - 68 /min Respiration - 17 /min BP - 117/77 mm(hg) O2 Sat - 98 % Pain - 0,0 - Fully active, able to carry on all predisease activities without restrictions. (ECOG) Physical Examination: Abdomen Non-tender, non-distended, no masses or ascites. Good bowel sounds noted in all quads. No guarding or rebound tenderness. No pulsatile masses. Constitutional Alert, oriented, no acute distress. Skin pink, warm and dry. Head Normocephalic; atraumatic. Eyes Conjunctivae and sclerae are clear and without icterus. Pupils are reactive and equal. Neck Supple without masses or thyromegaly. No jugular venous distension. Hematologic/Lymphatic No petechiae or purpura. Respiratory Lungs are clear to auscultation without rhonchi or wheezing. Cardiovascular Regular rate and rhythm of heart without murmurs,clicks, gallops or rubs. Back/Spine Non-tender to palpation. Extremities No visible deformities, no cyanosis, clubbing or edema. Musculoskeletal No tenderness or swelling, normal range of motion without obvious weakness. Integumentary No rashes or lesions. Neurologic No sensory or motor deficits, normal cerebellar function, normal gait. Psychiatric Alert and oriented times three. Coherent speech. Verbalizes understanding of our discussions today. Laboratory:Test performed on Dec 20, 2020 11:10 PSA 0.006 ng/mL Test performed on Sep 19, 2020 09:44 ABO & Rh Type # 2 Test Not Performed NO SPECIMEN RECEIVED Test performed on Sep 19, 2020 08:18 Sodium 139 mmol/L Potassium 4.1 mmol/L Chloride 102 mmol/L CO2 29 mmol/L Anion Gap 12.1 BUN 19 mg/dL Creatinine 1.2 mg/dL Cr Clearance (Est) 74.4600 mL/min Glucose 116 mg/dL Osmolality - Calculated 291 mOsm/kg Calcium 9.5 mg/dL Protein, Total 6.4 g/dL Albumin 4.2 g/dL Globulin 2.2 g/dL Bilirubin, Total 0.7 mg/dL ALT (SGPT) 37 U/L AST (SGOT) 27 U/L Alkaline Phosphatase 67 IU/L WBC 5.7 10 3/uL RBC 3.99 10 6/uL HGB 12.2 g/dL HCT 36.6 % MCV 91.7 fL MCH 30.6 pg MCHC 33.3 g/dL RDW 13.4 % Platelet Count 156 10 3/cmm MPV 10.8 fL Neutrophils 4.26 10 3/uL Lymphocytes 0.9 10 3/uL Monocytes 0.5 10 3/uL Eosinophils 0.1 10 3/uL Basophils 0.0 10 3/uL Neutrophil % 74.3 % Lymphocyte % 15.0 % Monocyte % 8.5 % Eosinophil % 1.4 % Basophils % 0.3 % NRBC % 0 % Impression: Adenocarcinoma the prostate status post TRUSP/biopsy done on 04/04/2018 and final pathology report showed 4 out of 12 positive cores on with 100% involvement ( left lateral apex Wausa score 4+3, left lateral mid and left lateral base Wausa score 4+4, left apex Wausa score 3+4) PSA was 10.7 the time of diagnosis T2 Nx Mx high risk e.g. large-volume and Alma [address] scan of abdomen pelvis done on 05/06/2018 showed no evidence of metastatic disease Bone scan done on 05/06/2018 showed no evidence of metastatic disease Mr Marie was started on combined androgen blockade with 3 month Zoladex and daily Casodex on 06/04/2018. His treatment plan is neoadjuvant and radiation treatment has included. He started radiation to the prostate on 08/25/2018 and completed radiation on 10/27/2018. His followup PSA on on 12/02/2018 was 0.01. So daily Casodex was discontinued on 12/02/2018, while continued with 3 monthly dose of Zoladex. He has tolerated it well with no signs of disease progression. Plan: PROBLEMS ADDRESSED TODAY 1. Prostate cancer with NO evidence of bone disease per bone scan from 05/06/2018. A. He is currently undergoing androgen deprivation with every 3-month Zoladex. He began combination daily Casodex and Zoladex on June 04, 2018. He has completed radiation to the prostate on October 27, 2018. His PSA at the time of diagnosis was 10.7 and after starting the Zoladex and Casodex as well as the radiation his follow-up PSA in November 2018 was 0.1. He has continued with every 3-month Zoladex and tolerated it well. The Casodex was stopped in November 2018. He has had no evidence of disease progression and his PSA continues to be suppressed. His PSA as of September 19, 2020 was <.006. A. Proceed with Zoladex 10.8 mg on a 3-month schedule. He is due today. B. His PSA was reviewed today and discussed with Mr. Marie and a copy was given to him. His result today is 0.006. C. He has had no evidence of disease progression and he is asymptomatic. D. I have asked for a vitamin D level with his next visit as he has had some intermittent myalgia. He also has androgen deprivation and is high risk for osteoporosis he may need DEXA scanning in the 2. Follow-up plan A. We will plan to see him back in 3 months with CBC CMP PSA and vitamin D level as requested above. B. He will be due for Zoladex 10.8 mg at that time as well. C. Mr. Marie was encouraged to watch taking his HCTZ later than 2 or 3:00 in the afternoon as he has had some increased urinary frequency at night as I forget to take my blood pressure medicine including the HCTZ in the morningand sometimes take it at night . D. Mr. Marie was instructed to contact us in the interim should questions or problems arise. E. I have asked that he see Dr Awan on his next followup as he is inquiring how long he will need to be on the Zoladex. He began his first treatment on 06/04/2018. Signed By: Keshawn Stein-, AOCNP Rivera Awan MD <<Signature on File>>
== END 2020-12-20 10:53 | disposition home or self-care (01) ==
PROVIDERS: Internal Medicine Hematology & Oncology; PCP Family Medicine; Visit Provider Nurse Practitioner
DX: C61 Malignant neoplasm of prostate (principal); M79.10 Myalgia, unspecified site; R35.0 Frequency of micturition; Z79.818 Long term (current) use of other agents affecting estrogen receptors and estrogen levels; Z79.899 Other long term (current) drug therapy; Z92.3 Personal history of irradiation
CPT/HCPCS: 36415; 84153; 96372; 96402; 99214; J9202

== ENCOUNTER 2021-03-14 11:50 | Outpatient (CLI) | payer BC, SELFPAY ==
[2021-03-14 12:25] LABS: Basophils % 0.3 %; Eosinophils # 0.1 10^3/uL (0.0-0.8); Eosinophils % 2.2 %; Hematocrit 36.6 % (42.0-52.0); Hemoglobin 12.3 g/dL (11.7-16.6); Lymphocytes % 15.2 %; Mean Corpuscular HGB Conc 33.6 g/dL (30.0-36.0); Mean Corpuscular Hemoglobin 30.5 pg (28.0-34.0); Mean Corpuscular Volume 90.8 fL (80-94); Mean Platelet Volume 10.4 fL (7.4-10.4); Monocytes # 0.5 10^3/uL (0.2-0.9); Monocytes % 7.6 %; Neutrophils # 4.71 10^3/uL (1.8-7.7); Neutrophils % 74.4 %; Nucleated Red Blood Cells % 0 %; Platelet Count 162 10^3/cmm (130-400); Red Blood Count 4.03 10^6/uL (4.1-5.3); Red Cell Distribution Width 13.2 % (12.1-15.1); White Blood Count 6.3 10^3/uL (4.0-10.0)
[2021-03-14 13:20] LABS: Prostate Specific Antigen < 0.006 ng/mL (0-4)
[2021-03-14 13:25] LABS: Alanine Aminotransferase 30 U/L (0-41); Albumin Level 4.2 g/dL (3.5-5.2); Alkaline Phosphatase 59 IU/L (40-130); Anion Gap 12.5 (5-19); Aspartate Amino Transferase 25 U/L (0-40); Blood Urea Nitrogen 22 mg/dL (8-23); Calcium 8.8 mg/dL (8.5-10.5); Carbon Dioxide 28 mmol/L (22-29); Chloride 102 mmol/L (98-107); Glucose 151 mg/dL (65-115); Osmolality Calculated 294 mOsm/kg (285-295); Potassium 3.5 mmol/L (3.5-5.1); Sodium 139 mmol/L (136-145); Total Bilirubin 0.5 mg/dL (0.15-1.2); Total Protein 6.2 g/dL (6.6-8.7)
[2021-03-14] MEDS: lidocaine 1% INJ 20 mL INJECTION (14:36)
[2021-03-14 14:39] LABS: 25 Hydroxy Vitamin D 41 ng/mL (30-100)
[2021-03-14] MEDS: goserelin acetate 10.8 mg Implant SUBCUT (14:47)
--- NOTE | 2021-03-14 17:21 | ONC FU_ITS ---
Dr. Awan follow up note Patient: Gurdeep Marie Unit #: [id number]: 1945 Dicatated By: Rivera Awan M.D.Date of Visit:Mar 14, 2021 Onc Med Follow-up/Prog Note History of Present Illness: Mr Marie is a 76-year-old gentleman with year-long history of progressive PSA level. He recently underwent TRUSP/biopsy on 04/04/2018 which showed 4 out of 12 cores positive, 100% of each core positive with Alma 4+3 and Alma 3+4 and Salvo 4+4. At the time of diagnosis his PSA was 10.7. Subsequently patient underwent CT scan of the pelvis which shows no evidence of metastatic disease and also had bone scan which was negative for metastatic disease also. 3 month dose of Zoladex was started on 06/04/2018. Along with daily Casodex in a neoadjuvant fashion. Later on, concurrent radiation therapy to prostate gland was added which he completed on 10/27/2018. Casodex was discontinued on 12/01/2018. He does continue with 3 monthly Zoladex. He has had no signs of disease progression and tolerates the Zoladex well. Came for follow-up, denies any specific complaints, no fever chills, no nausea vomiting, no diarrhea or constipation, no headaches blurred vision double vision, no new bony pains, no hematuria or dysuria, occasionally hot flashes otherwise tolerating 3 monthly Zoladex well Medications: Advair Diskus (100-50 mcg/dose) Aerosol Powder, Breath Activated Inhalation PRN, Aspirin 1 (81 mg) Tablet Oral daily, Atorvastatin Calcium 1 Tablet (of 80 mg) Oral daily, Brimonidine Tartrate Solution Ophthalmic daily, Cetirizine HCl 1 Tablet (of 10 mg) Oral daily, hydroCHLOROthiazide 1 Tablet (of 25 mg) Oral daily, Latanoprost Solution Ophthalmic daily, ProAir HFA 2 puff(s) (of 108 (90 base) mcg/act) Aerosol, solution Inhalation PRN, Tamsulosin HCl 1 Capsule (of 0.4 mg) Oral daily, Valsartan 1 Tablet (of 160 mg) Oral daily Allergies: No Known Allergies. Review of Systems: Review of Systems is not available for this patient. Vital Signs: Performed on Mar 14, 2021 13:48 Height - 71.00 in Weight - 220.4 lbs (LOW) BSA - 2.20 sq.m BMI - 30.74 (HIGH) Temperature - 97.5 F (LOW) Pulse - 65 /min Respiration - 18 /min BP - 108/59 mm(hg) O2 Sat - 97 % Pain - 0 Fatigue - 0 Performance Status: 0 - Fully active, able to carry on all predisease activities without restrictions. (ECOG) Physical Examination: ENMT - No mouth sores, no thrush, no jaundice, Respiratory - Lungs are clear to auscultation, Cardiovascular - Regular rate and rhythm of heart, Abdomen - Soft, bowel sounds present, Extremities - No visible edema or rash. Lab/Imaging: Test performed on Dec 20, 2020 11:10 PSA 0.006 ng/mL Test performed on Sep 19, 2020 09:44 ABO & Rh Type # 2 Test Not Performed NO SPECIMEN RECEIVED Test performed on Sep 19, 2020 08:18 Sodium 139 mmol/L Potassium 4.1 mmol/L Chloride 102 mmol/L CO2 29 mmol/L Anion Gap 12.1 BUN 19 mg/dL Creatinine 1.2 mg/dL Cr Clearance (Est) 74.4600 mL/min Glucose 116 mg/dL Osmolality - Calculated 291 mOsm/kg Calcium 9.5 mg/dL Protein, Total 6.4 g/dL Albumin 4.2 g/dL Globulin 2.2 g/dL Bilirubin, Total 0.7 mg/dL ALT (SGPT) 37 U/L AST (SGOT) 27 U/L Alkaline Phosphatase 67 IU/L WBC 5.7 10 3/uL RBC 3.99 10 6/uL HGB 12.2 g/dL HCT 36.6 % MCV 91.7 fL MCH 30.6 pg MCHC 33.3 g/dL RDW 13.4 % Platelet Count 156 10 3/cmm MPV 10.8 fL Neutrophils 4.26 10 3/uL Lymphocytes 0.9 10 3/uL Monocytes 0.5 10 3/uL Eosinophils 0.1 10 3/uL Basophils 0.0 10 3/uL Neutrophil % 74.3 % Lymphocyte % 15.0 % Monocyte % 8.5 % Eosinophil % 1.4 % Basophils % 0.3 % NRBC % 0 % Impression: Adenocarcinoma the prostate status post TRUSP/biopsy done on 04/04/2018 and final pathology report showed 4 out of 12 positive cores on with 100% involvement ( left lateral apex Salvo score 4+3, left lateral mid and left lateral base Alma score 4+4, left apex Alma score 3+4) PSA was 10.7 the time of diagnosis T2 Nx Mx high risk e.g. large-volume and Alma [address] scan of abdomen pelvis done on 05/06/2018 showed no evidence of metastatic disease Bone scan done on 05/06/2018 showed no evidence of metastatic disease Mr Marie was started on combined androgen blockade with 3 month Zoladex and daily Casodex on 06/04/2018. His treatment plan is neoadjuvant and radiation treatment has included. He started radiation to the prostate on 08/25/2018 and completed radiation on 10/27/2018. His followup PSA on on 12/02/2018 was 0.01. So daily Casodex was discontinued on 12/02/2018, while continued with 3 monthly dose of Zoladex. He has tolerated it well with no signs of disease progression. Plan: Discussed with patient regarding his labs white blood count 6.3 hemoglobin 12.3 hematocrit 36.6 platelets 162,000 CMP within normal limits PSA less than 0.006 Clinically, patient doing well with no new signs symptoms history of recurrence of disease, his follow-up labs shows PSA subzero and CBC CMP within normal range, at this point we will proceed with second last dose of adjuvant Zoladex today and then he will return to clinic in 3 months with PSA and at that time he will receive his last dose of Zoladex with that he will conclude his adjuvant ADT therapy and subsequently we will follow him every 6 months, With physical exam and PSA Signed By: Rivera Awan M.D. <<Signature on File>>
== END 2021-03-14 11:51 | disposition home or self-care (01) ==
LOC: ONCMED 11:55
PROVIDERS: PCP Family Medicine; Visit Provider Nurse Practitioner
DX: Z51.11 Encounter for antineoplastic chemotherapy (principal); C61 Malignant neoplasm of prostate; R97.20 Elevated prostate specific antigen [PSA]; Z79.818 Long term (current) use of other agents affecting estrogen receptors and estrogen levels
CPT/HCPCS: 80053; 82306; 84153; 85025; 96372; 96402; 99215; J9202

== ENCOUNTER 2021-06-19 13:21 | Outpatient (CLI) | payer BC, SELFPAY ==
[2021-06-19 14:28] LABS: Prostate Specific Antigen < 0.006 ng/mL (0-4)
[2021-06-19] MEDS: lidocaine 1% INJ 20 mL INJECTION (15:30)
--- NOTE | 2021-06-19 15:30 | ONC FU_ITS ---
Dr. Awan follow up note Patient: Gurdeep Marie Unit #: [id number]: 1945 Dicatated By: Rivera Awan M.D.Date of Visit:Jun 19, 2021 Onc Med Follow-up/Prog Note History of Present Illness: Mr Marie is a 76-year-old gentleman with year-long history of progressive PSA level. He recently underwent TRUSP/biopsy on 04/04/2018 which showed 4 out of 12 cores positive, 100% of each core positive with Delhi 4+3 and Delhi 3+4 and Delhi 4+4. At the time of diagnosis his PSA was 10.7. Subsequently patient underwent CT scan of the pelvis which shows no evidence of metastatic disease and also had bone scan which was negative for metastatic disease also. 3 month dose of Zoladex was started on 06/04/2018. Along with daily Casodex in a neoadjuvant fashion. Later on, concurrent radiation therapy to prostate gland was added which he completed on 10/27/2018. Casodex was discontinued on 12/01/2018. He does continue with 3 monthly Zoladex. Came for follow-up, denies any specific complaints, no fever chills, no nausea or vomiting, no diarrhea or constipation, no new bony pains, occasionally hot flashes, tolerating Zoladex well otherwise Medications: Advair Diskus (100-50 mcg/dose) Aerosol Powder, Breath Activated Inhalation PRN, Aspirin 1 (81 mg) Tablet Oral daily, Atorvastatin Calcium 1 Tablet (of 80 mg) Oral daily, Brimonidine Tartrate Solution Ophthalmic daily, Cetirizine HCl 1 Tablet (of 10 mg) Oral daily, hydroCHLOROthiazide 1 Tablet (of 25 mg) Oral daily, Latanoprost Solution Ophthalmic daily, ProAir HFA 2 puff(s) (of 108 (90 base) mcg/act) Aerosol, solution Inhalation PRN, Tamsulosin HCl 1 Capsule (of 0.4 mg) Oral daily, Valsartan 1 Tablet (of 160 mg) Oral daily Allergies: No Known Allergies. Review of Systems: Review of Systems is not available for this patient. Vital Signs: Performed on Jun 19, 2021 15:00 Height - 71.00 in Weight - 212.4 lbs (LOW) BSA - 2.16 sq.m BMI - 29.62 Temperature - 97.0 F (LOW) Pulse - 73 /min Respiration - 18 /min BP - 115/71 mm(hg) O2 Sat - 98 % Pain - 0 Performance Status: Perf. Status is not available for this patient. Physical Examination: ENMT - No mouth sores, no thrush, no jaundice, Respiratory - Lungs are clear to auscultation, Cardiovascular - Regular rate and rhythm of heart, Abdomen - Soft, bowel sounds present, Extremities - No visible edema. Lab/Imaging: Most recent lab results are not available for this patient. Impression: Adenocarcinoma the prostate status post TRUSP/biopsy done on 04/04/2018 and final pathology report showed 4 out of 12 positive cores on with 100% involvement ( left lateral apex Delhi score 4+3, left lateral mid and left lateral base Alma score 4+4, left apex Alma score 3+4) PSA was 10.7 the time of diagnosis T2 Nx Mx high risk e.g. large-volume and Alma 8 DISP[employer]ER RADIOACTIVE WASTE DISPOSAL. CT scan of abdomen pelvis done on 05/06/2018 showed no evidence of metastatic disease Bone scan done on 05/06/2018 showed no evidence of metastatic disease Mr Marie was started on combined androgen blockade with 3 month Zoladex and daily Casodex on 06/04/2018. His treatment plan is neoadjuvant and radiation treatment has included. He started radiation to the prostate on 08/25/2018 and completed radiation on 10/27/2018. His followup PSA on on 12/02/2018 was 0.01. So daily Casodex was discontinued on 12/02/2018, while continued with 3 monthly dose of Zoladex. He has tolerated it well with no signs of disease progression. Plan: Discussed with patient regarding his labs PSA less than 0.006 Clinically, patient doing well with no new signs symptoms history of recurrence of disease, tolerating Zoladex well, will proceed with final dose of Zoladex today then he will return to clinic in 6 months with PSA CBC, CMP Signed By: Rivera Awan M.D. <<Signature on File>>
[2021-06-19] MEDS: goserelin acetate 10.8 mg Implant SUBCUT (15:40)
== END 2021-06-19 13:22 | disposition home or self-care (01) ==
PROVIDERS: PCP Family Medicine; Visit Provider Internal Medicine Hematology & Oncology
DX: Z51.11 Encounter for antineoplastic chemotherapy (principal); C61 Malignant neoplasm of prostate; R97.20 Elevated prostate specific antigen [PSA]; Z79.899 Other long term (current) drug therapy
CPT/HCPCS: 36415; 84153; 96372; 96402; 99215; J9202

== ENCOUNTER 2021-12-15 10:54 | Outpatient (CLI) | payer BC, SELFPAY ==
[2021-12-15 11:40] LABS: Basophils % 0.6 %; Eosinophils # 0.3 10^3/uL (0.0-0.8); Eosinophils % 5.7 %; Hematocrit 37.2 % (42.0-52.0); Hemoglobin 12.8 g/dL (11.7-16.6); Lymphocytes # 1.1 10^3/uL (0.8-4.8); Lymphocytes % 20.2 %; Mean Corpuscular HGB Conc 34.4 g/dL (30.0-36.0); Mean Corpuscular Hemoglobin 30.8 pg (28.0-34.0); Mean Corpuscular Volume 89.6 fl (80-94); Monocytes # 0.5 10^3/uL (0.2-0.9); Neutrophils # 3.36 10^3/uL (1.8-7.7); Neutrophils % 64.1 %; Nucleated Red Blood Cells % 0 %; Platelet Count 167 10^3/cmm (130-400); Red Blood Count 4.15 10^6/uL (4.1-5.3); Red Cell Distribution Width 13.6 % (12.1-15.1); White Blood Count 5.2 10^3/uL (4.0-10.0)
[2021-12-15 12:10] LABS: Alanine Aminotransferase 30 U/L (0-41); Albumin Level 4.4 g/dL (3.5-5.2); Alkaline Phosphatase 70 IU/L (40-130); Anion Gap 13.9 (5-19); Aspartate Amino Transferase 26 U/L (0-40); Blood Urea Nitrogen 25 mg/dL (8-23); Calcium 9.4 mg/dL (8.5-10.5); Carbon Dioxide 25 mmol/L (22-29); Chloride 101 mmol/L (98-107); Globulin 2.4 g/dL (1.3-4.6); Glucose 121 mg/dL (65-115); Osmolality Calculated 288 mOsm/kg (285-295); Potassium 3.9 mmol/L (3.5-5.1); Sodium 136 mmol/L (136-145); Total Bilirubin 0.6 mg/dL (0.15-1.2); Total Protein 6.8 g/dL (6.6-8.7)
[2021-12-15 12:12] LABS: Prostate Specific Antigen < 0.014 ng/mL (0-4)
== END 2021-12-15 10:55 | disposition home or self-care (01) ==
PROVIDERS: PCP Family Medicine; Visit Provider Internal Medicine Hematology & Oncology
DX: C61 Malignant neoplasm of prostate (principal)
CPT/HCPCS: 36415; 80053; 84153; 85025

== ENCOUNTER 2021-12-18 12:16 | Outpatient (CLI) | payer BC, SELFPAY ==
--- NOTE | 2021-12-21 20:30 | ONC FU_ITS ---
Rosa Garcia Progress Note Patient: Gurdeep Marie Unit #: [id number]: 1945 Dicatated By: Rosa Garcia N.P.Date of Visit:Dec 18, 2021 Onc MED Follow-up/Prog Note Chief Complaint: Prostrate cancer History of Present Illness: Mr Marie is a 76-year-old gentleman with year-long history of progressive PSA level. He recently underwent TRUSP/biopsy on 04/04/2018 which showed 4 out of 12 cores positive, 100% of each core positive with Alma 4+3 and Hardin 3+4 and Hardin 4+4. At the time of diagnosis his PSA was 10.7. Subsequently patient underwent CT scan of the pelvis which shows no evidence of metastatic disease and also had bone scan which was negative for metastatic disease also. 3 month dose of Zoladex was started on 06/04/2018. Along with daily Casodex in a neoadjuvant fashion. Later on, concurrent radiation therapy to prostate gland was added which he completed on 10/27/2018. Casodex was discontinued on 12/01/2018. He does continue with 3 monthly Zoladex. Patient presents today for follow-up. He states he is feeling well. His appetite has been good. No fever, chills, night sweats. No sinus drainage or mouth sores. No shortness of breath, cough, chest pain. No GI or concerns, no joint or muscle pain. He completed his final dose of Zoladex on 06/19/2021. Review Of Symptoms: See above. Past Medical History: Asthma Hyperlipidemia Hypertension Past Surgical History: Back surgery x 2 Cataract excision Right toe Tonsillectomy Trusp Covid vaccine #2 moderna in 2020 Covid vaccine #1 moderna in 2020 Colonoscopy in 2017 Allergies: No Known Allergies. Medications: Advair Diskus (100-50 mcg/dose) Aerosol Powder, Breath Activated Inhalation PRN Aspirin 1 (81 mg) Tablet Oral daily Atorvastatin Calcium 1 Tablet (of 80 mg) Oral daily Brimonidine Tartrate Solution Ophthalmic daily Cetirizine HCl 1 Tablet (of 10 mg) Oral daily hydroCHLOROthiazide 1 Tablet (of 25 mg) Oral daily Latanoprost Solution Ophthalmic daily ProAir HFA 2 puff(s) (of 108 (90 base) mcg/act) Aerosol, solution Inhalation PRN Tamsulosin HCl 1 Capsule (of 0.4 mg) Oral daily Valsartan 1 Tablet (of 160 mg) Oral daily Family History: Mr. Marie's mother is : heart disease at age 84. Social History: Mr. Marie is and he is retired. Mr. Marie has never smoked. He drinks daily. Physical Examination: Performed on Dec 18, 2021 13:19: Height - 71.00 in, Weight - 217.4 lbs (HIGH), BSA - 2.19 sq.m, BMI - 30.32 (HIGH), Temperature - 97.3 F (LOW), Pulse - 81 /min, Respiration - 18 /min, BP - 124/75 mm(hg), O2 Sat - 97 %, Pain - 0, and Fatigue - 3. Performance Status: 0 - Fully active, able to carry on all predisease activities without restrictions. (ECOG) Constitutional Alert, cooperative, oriented. Mood and affect appropriate. Appears close to chronological age. Well nourished. Well developed. Respiratory Lungs are clear to auscultation without rhonchi or wheezing. Cardiovascular Regular rate and rhythm of heart without murmurs, gallops or rubs. Abdomen Non-tender, non-distended, no masses, ascites or hepatosplenomegaly. Good bowel sounds. No guarding or rebound tenderness. Psychiatric Alert and oriented times three. Coherent speech. Verbalizes understanding of our discussions today. Laboratory: Most recent lab results are not available for this patient. Impression: Adenocarcinoma the prostate status post TRUSP/biopsy done on 04/04/2018 and final pathology report showed 4 out of 12 positive cores on with 100% involvement ( left lateral apex Hardin score 4+3, left lateral mid and left lateral base Hardin score 4+4, left apex Alma score 3+4) PSA was 10.7 the time of diagnosis T2 Nx Mx high risk e.g. large-volume and Hardin [address] scan of abdomen pelvis done on 05/06/2018 showed no evidence of metastatic disease Bone scan done on 05/06/2018 showed no evidence of metastatic disease Mr Marie was started on combined androgen blockade with 3 month Zoladex and daily Casodex on 06/04/2018. His treatment plan is neoadjuvant and radiation treatment has included. He started radiation to the prostate on 08/25/2018 and completed radiation on 10/27/2018. His followup PSA on on 12/02/2018 was 0.01. So daily Casodex was discontinued on 12/02/2018, while continued with 3 monthly dose of Zoladex. He has tolerated it well with no signs of disease progression. Plan: Discussed with patient regarding his labs PSA less than 0.014. Patient is doing well with no signs of disease progression. He completed his last dose of Zoladex on 06/19/2021. He will be followed now on expectant management. He will follow-up in 6 months with a PSA. Signed By: Rosa Garcia NAnais. <<Signature on File>>
== END 2021-12-18 12:17 | disposition home or self-care (01) ==
LOC: ONCMED 12:21
PROVIDERS: PCP Family Medicine; Visit Provider Nurse Practitioner Family
DX: Z85.46 Personal history of malignant neoplasm of prostate (principal); E78.5 Hyperlipidemia, unspecified; I10 Essential (primary) hypertension; Z79.899 Other long term (current) drug therapy; J45.909 Unspecified asthma, uncomplicated
CPT/HCPCS: 99214

== ENCOUNTER 2022-06-20 10:44 | Oncology outpatient (recurring) (ONCR) | payer BC, SELFPAY ==
[2022-06-20 11:24] LABS: Basophils % 0.3 %; Eosinophils # 0.3 10^3/uL (0.0-0.8); Eosinophils % 3.7 %; Hematocrit 40.2 % (42.0-52.0); Hemoglobin 13.4 g/dL (11.7-16.6); Lymphocytes # 1.2 10^3/uL (0.8-4.8); Lymphocytes % 16.6 %; Mean Corpuscular HGB Conc 33.3 g/dL (30.0-36.0); Mean Corpuscular Hemoglobin 30.3 pg (28.0-34.0); Mean Platelet Volume 10.6 fL (7.4-10.4); Monocytes # 0.6 10^3/uL (0.2-0.9); Monocytes % 8.7 %; Neutrophils # 5.01 10^3/uL (1.8-7.7); Neutrophils % 70.4 %; Nucleated Red Blood Cells % 0 %; Platelet Count 164 10^3/cmm (130-400); Red Blood Count 4.42 10^6/uL (4.1-5.3); Red Cell Distribution Width 13.2 % (12.1-15.1); White Blood Count 7.1 10^3/uL (4.0-10.0)
[2022-06-20 11:39] LABS: Albumin Level 4.2 g/dL (3.5-5.2); Alkaline Phosphatase 87 U/L (40-130); Anion Gap 13.4 (5-19); Aspartate Amino Transferase 22 U/L (0-40); Blood Urea Nitrogen 23 mg/dL (8-23); Calcium 9.2 mg/dL (8.5-10.5); Carbon Dioxide 27 mmol/L (22-29); Chloride 103 mmol/L (98-107); Globulin 2.4 g/dL (1.3-4.6); Glucose 143 mg/dL (65-115); Osmolality Calculated 294 mOsm/kg (285-295); Potassium 4.4 mmol/L (3.5-5.1); Sodium 139 mmol/L (136-145); Total Bilirubin 0.6 mg/dL (0.15-1.2); Total Protein 6.6 g/dL (6.6-8.7)
[2022-06-20 11:50] LABS: Alanine Aminotransferase 26 U/L (0-41)
[2022-06-20 13:56] LABS: Prostate Specific Antigen 0.085 ng/mL (0-4)
== END 2022-06-29 23:59 | disposition home or self-care (01) ==
PROVIDERS: Nurse Practitioner Family; PCP Family Medicine; Visit Provider Internal Medicine Hematology & Oncology
DX: C61 Malignant neoplasm of prostate (principal)
CPT/HCPCS: 80053; 84153; 85025; J2704; J3010

== ENCOUNTER 2022-12-20 10:37 | Oncology outpatient (recurring) (ONCR) | payer BC, SELFPAY ==
[2022-12-20 11:34] LABS: Basophils % 0.4 %; Eosinophils # 0.4 10^3/uL (0.0-0.8); Eosinophils % 5.1 %; Hemoglobin 14.1 g/dL (11.7-16.6); Lymphocytes # 1.2 10^3/uL (0.8-4.8); Mean Corpuscular HGB Conc 33.6 g/dL (30.0-36.0); Mean Corpuscular Hemoglobin 30.3 pg (28.0-34.0); Mean Corpuscular Volume 90.1 fl (80-94); Mean Platelet Volume 10.2 fL (7.4-10.4); Monocytes # 0.7 10^3/uL (0.2-0.9); Monocytes % 8.1 %; Neutrophils # 6.05 10^3/uL (1.8-7.7); Neutrophils % 71.9 %; Nucleated Red Blood Cells % 0 %; Platelet Count 175 10^3/cmm (130-400); Red Blood Count 4.66 10^6/uL (4.1-5.3); Red Cell Distribution Width 13.5 % (12.1-15.1); White Blood Count 8.4 10^3/uL (4.0-10.0)
[2022-12-20 12:08] LABS: Alanine Aminotransferase 35 U/L (0-41); Albumin Level 4.2 g/dL (3.5-5.2); Alkaline Phosphatase 75 U/L (40-130); Aspartate Amino Transferase 31 U/L (0-40); Blood Urea Nitrogen 15 mg/dL (8-23); Calcium 8.7 mg/dL (8.5-10.5); Carbon Dioxide 24 mmol/L (22-29); Chloride 104 mmol/L (98-107); Globulin 2.3 g/dL (1.3-4.6); Glucose 149 mg/dL (65-115); Osmolality Calculated 292 mOsm/kg (285-295); Prostate Specific Antigen 0.238 ng/mL (0-4); Sodium 139 mmol/L (136-145); Total Bilirubin 0.8 mg/dL (0.15-1.2); Total Protein 6.5 g/dL (6.6-8.7)
[2022-12-20 12:10] LABS: Anion Gap 15.4 (5-19); Potassium 4.4 mmol/L (3.5-5.1)
== END 2022-12-28 23:59 | disposition home or self-care (01) ==
PROVIDERS: PCP Family Medicine; Visit Provider Internal Medicine Hematology & Oncology
DX: C61 Malignant neoplasm of prostate (principal)
CPT/HCPCS: 80053; 84153; 85025

== ENCOUNTER 2023-03-20 11:35 | Oncology outpatient (recurring) (ONCR) | payer BC, SELFPAY ==
[2023-03-20 11:55] VITALS: BP 157/87; PULSE 66; RESP 18; TEMP 36.8; O2SAT 96
[2023-03-20 12:43] LABS: Prostate Specific Antigen 0.239 ng/mL (0-4)
== END 2023-03-29 23:59 | disposition home or self-care (01) ==
PROVIDERS: PCP Family Medicine; Visit Provider Internal Medicine Hematology & Oncology
DX: C61 Malignant neoplasm of prostate (principal)
CPT/HCPCS: 36415; 84153

== ENCOUNTER 2023-09-17 11:44 | Oncology outpatient (recurring) (ONCR) | payer BC, SELFPAY ==
[2023-09-17 11:55] VITALS: BP 158/98; PULSE 65; RESP 16; TEMP 36.5; O2SAT 96
[2023-09-17 12:49] LABS: Alanine Aminotransferase 39 U/L (0-41); Albumin Level 4.5 g/dL (3.5-5.2); Alkaline Phosphatase 73 U/L (40-130); Anion Gap 11.1 (5-19); Aspartate Amino Transferase 25 U/L (0-40); Blood Urea Nitrogen 16 mg/dL (8-23); Calcium 9.4 mg/dL (8.5-10.5); Carbon Dioxide 28 mmol/L (22-29); Chloride 104 mmol/L (98-107); Globulin 2.2 g/dL (1.3-4.6); Glucose 156 mg/dL (65-115); Osmolality Calculated 292 mOsm/kg (285-295); Potassium 4.1 mmol/L (3.5-5.1); Prostate Specific Antigen 0.382 ng/mL (0-4); Sodium 139 mmol/L (136-145); Total Bilirubin 0.9 mg/dL (0.15-1.2); Total Protein 6.7 g/dL (6.6-8.7)
== END 2023-09-29 23:59 | disposition home or self-care (01) ==
PROVIDERS: PCP Family Medicine; Visit Provider Internal Medicine Hematology & Oncology
DX: C61 Malignant neoplasm of prostate (principal); Z79.899 Other long term (current) drug therapy
CPT/HCPCS: 36415; 80053; 84153

== ENCOUNTER 2023-12-18 12:45 | Oncology outpatient (recurring) (ONCR) | payer BC, SELFPAY ==
[2023-12-18 13:15] LABS: Basophils % 0.4 %; Eosinophils # 0.3 10^3/uL (0.0-0.8); Eosinophils % 3.8 %; Hematocrit 41.5 % (37-53); Lymphocytes # 0.9 10^3/uL (0.8-4.8); Lymphocytes % 12.1 %; Mean Corpuscular HGB Conc 34.9 g/dL (30-55); Mean Corpuscular Hemoglobin 31.5 pg (27-33); Mean Platelet Volume 9.9 fL (7.4-10.4); Monocytes # 0.5 10^3/uL (0.2-0.9); Monocytes % 6.4 %; Neutrophils # 5.52 10^3/uL (1.8-7.7); Neutrophils % 76.7 %; Nucleated Red Blood Cells % 0 %; Platelet Count 169 10^3/cmm (157-399); Red Blood Count 4.61 10^6/uL (3.85-5.65); Red Cell Distribution Width 13.6 % (12.1-15.1); White Blood Count 7.19 10^3/uL (3.29-11.43)
[2023-12-18 13:44] LABS: Alanine Aminotransferase 45 U/L (0-41); Albumin Level 4.4 g/dL (3.5-5.2); Alkaline Phosphatase 71 U/L (40-130); Anion Gap 13.1 (5-19); Aspartate Amino Transferase 27 U/L (0-40); Blood Urea Nitrogen 16 mg/dL (8-23); Calcium 9.3 mg/dL (8.5-10.5); Carbon Dioxide 25 mmol/L (22-29); Chloride 105 mmol/L (98-107); Globulin 2.4 g/dL (1.3-4.6); Glucose 222 mg/dL (65-115); Osmolality Calculated 296 mOsm/kg (285-295); Potassium 4.1 mmol/L (3.5-5.1); Prostate Specific Antigen 0.421 ng/mL (0-4); Sodium 139 mmol/L (136-145); Total Bilirubin 0.7 mg/dL (0.15-1.2); Total Protein 6.8 g/dL (6.6-8.7)
== END 2023-12-29 23:59 | disposition home or self-care (01) ==
PROVIDERS: Nurse Practitioner Family; PCP Family Medicine; Visit Provider Internal Medicine Hematology & Oncology
DX: C61 Malignant neoplasm of prostate (principal)
CPT/HCPCS: 36415; 80053; 84153; 85025

== ENCOUNTER 2024-03-02 13:22 | Oncology outpatient (recurring) (ONCR) | payer BC, SELFPAY ==
[2024-03-02 13:46] LABS: Basophils % 0.6 %; Eosinophils # 0.5 10^3/uL (0.0-0.8); Eosinophils % 6.9 %; Hematocrit 43.4 % (37-53); Lymphocytes % 13.8 %; Mean Corpuscular HGB Conc 33.9 g/dL (30-55); Mean Corpuscular Hemoglobin 31.3 pg (27-33); Mean Corpuscular Volume 92.5 fl (82-101); Mean Platelet Volume 10.5 fL (7.4-10.4); Monocytes # 0.5 10^3/uL (0.2-0.9); Monocytes % 6.3 %; Neutrophils # 5.21 10^3/uL (1.8-7.7); Neutrophils % 71.8 %; Nucleated Red Blood Cells % 0 %; Platelet Count 169 10^3/cmm (157-399); Red Blood Count 4.69 10^6/uL (3.85-5.65); Red Cell Distribution Width 13.3 % (12.1-15.1); White Blood Count 7.25 10^3/uL (3.29-11.43)
[2024-03-02 14:03] LABS: Alanine Aminotransferase 40 U/L (0-41); Albumin Level 4.5 g/dL (3.5-5.2); Alkaline Phosphatase 77 U/L (40-130); Anion Gap 12.5 (5-19); Aspartate Amino Transferase 25 U/L (0-40); Blood Urea Nitrogen 11 mg/dL (8-23); Calcium 8.8 mg/dL (8.5-10.5); Carbon Dioxide 25 mmol/L (22-29); Chloride 108 mmol/L (98-107); Globulin 2.5 g/dL (1.3-4.6); Glucose 186 mg/dL (65-115); Osmolality Calculated 296 mOsm/kg (285-295); Potassium 4.5 mmol/L (3.5-5.1); Sodium 141 mmol/L (136-145); Total Bilirubin 0.6 mg/dL (0.15-1.2)
[2024-03-02 15:29] LABS: Prostate Specific Antigen 0.359 ng/mL (0-4)
== END 2024-03-29 23:59 | disposition home or self-care (01) ==
LOC: ONCMED 13:22
PROVIDERS: Internal Medicine Medical Oncology; PCP Family Medicine; Visit Provider Internal Medicine Hematology & Oncology
DX: C61 Malignant neoplasm of prostate (principal)
CPT/HCPCS: 36415; 80053; 84153; 85025

== ENCOUNTER 2024-06-09 13:15 | Oncology outpatient (recurring) (ONCR) | payer BC, SELFPAY ==
[2024-06-09 13:46] LABS: Basophils % 0.5 %; Eosinophils # 0.4 10^3/uL (0.0-0.8); Eosinophils % 5.9 %; Hematocrit 44.3 % (37-53); Lymphocytes # 1.1 10^3/uL (0.8-4.8); Lymphocytes % 16.1 %; Mean Corpuscular HGB Conc 33.4 g/dL (30-55); Mean Corpuscular Hemoglobin 30.1 pg (27-33); Mean Corpuscular Volume 90.2 fl (82-101); Monocytes # 0.6 10^3/uL (0.2-0.9); Monocytes % 8.3 %; Neutrophils # 4.55 10^3/uL (1.8-7.7); Neutrophils % 68.6 %; Nucleated Red Blood Cells % 0 %; Platelet Count 146 10^3/cmm (157-399); Red Blood Count 4.91 10^6/uL (3.85-5.65); Red Cell Distribution Width 13.2 % (12.1-15.1); White Blood Count 6.63 10^3/uL (3.29-11.43)
[2024-06-09 14:16] LABS: Alanine Aminotransferase 33 U/L (0-41); Albumin Level 4.4 g/dL (3.5-5.2); Alkaline Phosphatase 73 U/L (40-130); Anion Gap 11.8 (5-19); Aspartate Amino Transferase 20 U/L (0-40); Blood Urea Nitrogen 11 mg/dL (8-23); Calcium 9.2 mg/dL (8.5-10.5); Carbon Dioxide 28 mmol/L (22-29); Chloride 104 mmol/L (98-107); Globulin 2.2 g/dL (1.3-4.6); Glucose 161 mg/dL (65-115); Osmolality Calculated 293 mOsm/kg (285-295); Potassium 3.8 mmol/L (3.5-5.1); Sodium 140 mmol/L (136-145); Total Bilirubin 0.8 mg/dL (0.15-1.2); Total Protein 6.6 g/dL (6.6-8.7)
== END 2024-06-29 23:59 | disposition home or self-care (01) ==
PROVIDERS: Nurse Practitioner Family; PCP Family Medicine; Visit Provider Internal Medicine Medical Oncology
DX: C61 Malignant neoplasm of prostate (principal)
CPT/HCPCS: 36415; 80053; 84153; 85025

== ENCOUNTER 2024-09-08 12:29 | Oncology outpatient (recurring) (ONCR) | payer BC, SELFPAY ==
[2024-09-08 12:48] LABS: Basophils % 0.3 %; Eosinophils # 0.2 10^3/uL (0.0-0.8); Eosinophils % 2.5 %; Hematocrit 43.8 % (37-53); Lymphocytes # 0.9 10^3/uL (0.8-4.8); Lymphocytes % 10.5 %; Mean Corpuscular HGB Conc 34.9 g/dL (30-55); Mean Corpuscular Hemoglobin 31.2 pg (27-33); Mean Corpuscular Volume 89.2 fl (82-101); Monocytes # 0.5 10^3/uL (0.2-0.9); Monocytes % 5.9 %; Neutrophils # 6.93 10^3/uL (1.8-7.7); Neutrophils % 80.2 %; Nucleated Red Blood Cells % 0 %; Platelet Count 162 10^3/cmm (157-399); Red Blood Count 4.91 10^6/uL (3.85-5.65); White Blood Count 8.65 10^3/uL (3.29-11.43)
[2024-09-08 13:13] LABS: Alanine Aminotransferase 39 U/L (0-41); Albumin Level 4.3 g/dL (3.5-5.2); Alkaline Phosphatase 79 U/L (40-130); Anion Gap 13.2 (5-19); Aspartate Amino Transferase 24 U/L (0-40); Blood Urea Nitrogen 14 mg/dL (8-23); Calcium 9.7 mg/dL (8.5-10.5); Carbon Dioxide 26 mmol/L (22-29); Chloride 102 mmol/L (98-107); Globulin 2.4 g/dL (1.3-4.6); Glucose 268 mg/dL (65-115); Osmolality Calculated 294 mOsm/kg (285-295); Potassium 4.2 mmol/L (3.5-5.1); Prostate Specific Antigen 0.289 ng/mL (0-4); Sodium 137 mmol/L (136-145); Total Bilirubin 0.6 mg/dL (0.15-1.2); Total Protein 6.7 g/dL (6.6-8.7)
== END 2024-09-29 23:59 | disposition home or self-care (01) ==
PROVIDERS: Nurse Practitioner Family; PCP Family Medicine; Visit Provider Internal Medicine Medical Oncology
DX: C61 Malignant neoplasm of prostate (principal)
CPT/HCPCS: 36415; 80053; 84153; 85025

== ENCOUNTER 2024-12-08 12:46 | Oncology outpatient (recurring) (ONCR) | payer BC, SELFPAY ==
[2024-12-08 13:11] LABS: Basophils % 0.2 %; Eosinophils % 0.4 %; Lymphocytes # 0.7 10^3/uL (0.8-4.8); Lymphocytes % 8.9 %; Mean Corpuscular HGB Conc 34.8 g/dL (30-55); Mean Corpuscular Hemoglobin 31.2 pg (27-33); Mean Corpuscular Volume 89.9 fl (82-101); Mean Platelet Volume 9.7 fL (7.4-10.4); Monocytes # 0.5 10^3/uL (0.2-0.9); Monocytes % 6.1 %; Neutrophils % 83.9 %; Nucleated Red Blood Cells % 0 %; Platelet Count 170 10^3/cmm (157-399); Red Blood Count 4.45 10^6/uL (3.85-5.65); Red Cell Distribution Width 13.7 % (12.1-15.1); White Blood Count 8.22 10^3/uL (3.29-11.43)
[2024-12-08 13:40] LABS: Alanine Aminotransferase 33 U/L (0-41); Albumin Level 4.5 g/dL (3.5-5.2); Alkaline Phosphatase 81 U/L (40-130); Anion Gap 15.9 (5-19); Aspartate Amino Transferase 22 U/L (0-40); Blood Urea Nitrogen 17 mg/dL (8-23); Calcium 9.5 mg/dL (8.5-10.5); Carbon Dioxide 27 mmol/L (22-29); Chloride 97 mmol/L (98-107); Globulin 2.5 g/dL (1.3-4.6); Glucose 204 mg/dL (65-115); Osmolality Calculated 289 mOsm/kg (285-295); Potassium 3.9 mmol/L (3.5-5.1); Prostate Specific Antigen 0.349 ng/mL (0-4); Sodium 136 mmol/L (136-145); Total Bilirubin 0.7 mg/dL (0.15-1.2)
[2024-12-08 13:41] LABS: Creatinine Clr Calc Pharmacy 49.5635
== END 2024-12-28 23:59 | disposition home or self-care (01) ==
PROVIDERS: PCP Family Medicine; Visit Provider Internal Medicine Medical Oncology
DX: C61 Malignant neoplasm of prostate (principal); Z72.0 Tobacco use
CPT/HCPCS: 36415; 80053; 84153; 85025

== ENCOUNTER 2025-03-09 12:19 | Oncology outpatient (recurring) (ONCR) | payer BC, SELFPAY ==
[2025-03-09 12:44] LABS: Basophils % 0.3 %; Eosinophils # 0.1 10^3/uL (0.0-0.8); Eosinophils % 1.3 %; Hematocrit 39.1 % (37-53); Lymphocytes # 0.9 10^3/uL (0.8-4.8); Lymphocytes % 12.1 %; Mean Corpuscular HGB Conc 34.8 g/dL (30-55); Mean Corpuscular Hemoglobin 31.6 pg (27-33); Mean Corpuscular Volume 90.7 fl (82-101); Mean Platelet Volume 9.5 fL (7.4-10.4); Monocytes # 0.5 10^3/uL (0.2-0.9); Monocytes % 6.6 %; Neutrophils # 5.89 10^3/uL (1.8-7.7); Neutrophils % 79.3 %; Nucleated Red Blood Cells % 0 %; Platelet Count 183 10^3/cmm (157-399); Red Blood Count 4.31 10^6/uL (3.85-5.65); Red Cell Distribution Width 13.1 % (12.1-15.1); White Blood Count 7.43 10^3/uL (3.29-11.43)
[2025-03-09 13:13] LABS: Alanine Aminotransferase 34 U/L (0-41); Albumin Level 4.4 g/dL (3.5-5.2); Alkaline Phosphatase 65 U/L (40-130); Anion Gap 15.8 (5-19); Aspartate Amino Transferase 23 U/L (0-40); Blood Urea Nitrogen 18 mg/dL (8-23); Calcium 9.3 mg/dL (8.5-10.5); Carbon Dioxide 25 mmol/L (22-29); Chloride 97 mmol/L (98-107); Globulin 2.2 g/dL (1.3-4.6); Glucose 182 mg/dL (65-115); Osmolality Calculated 285 mOsm/kg (285-295); Potassium 3.8 mmol/L (3.5-5.1); Prostate Specific Antigen 0.301 ng/mL (0-4); Sodium 134 mmol/L (136-145); Total Bilirubin 0.6 mg/dL (0.15-1.2); Total Protein 6.6 g/dL (6.6-8.7)
== END 2025-03-29 23:59 | disposition home or self-care (01) ==
PROVIDERS: PCP Family Medicine; Visit Provider Internal Medicine Medical Oncology
DX: C61 Malignant neoplasm of prostate (principal)
CPT/HCPCS: 36415; 80053; 84153; 85025

== ENCOUNTER 2025-06-15 11:38 | Oncology outpatient (recurring) (ONCR) | payer BC, SELFPAY ==
[2025-06-15 11:59] LABS: Hematocrit 43.3 % (37-53); Hemoglobin 15.20 g/dL (11.27-16.99); Mean Corpuscular HGB Conc 35.1 g/dL (30-55); Mean Corpuscular Hemoglobin 31.2 pg (27-33); Mean Corpuscular Volume 88.9 fl (82-101); Nucleated Red Blood Cells % 0 %; Platelet Count 163 10^3/cmm (157-399); Red Blood Count 4.87 10^6/uL (3.85-5.65); White Blood Count 7.94 10^3/uL (3.29-11.43)
[2025-06-15 12:23] LABS: Alanine Aminotransferase 26 U/L (0-41); Albumin Level 4.4 g/dL (3.5-5.2); Alkaline Phosphatase 99 U/L (40-130); Anion Gap 15.1 (5-19); Aspartate Amino Transferase 18 U/L (0-40); Blood Urea Nitrogen 13 mg/dL (8-23); Calcium 9.8 mg/dL (8.5-10.5); Carbon Dioxide 24 mmol/L (22-29); Chloride 101 mmol/L (98-107); Globulin 2.6 g/dL (1.3-4.6); Glucose 368 mg/dL (65-115); Osmolality Calculated 297 mOsm/kg (285-295); Potassium 4.1 mmol/L (3.5-5.1); Prostate Specific Antigen 0.272 ng/mL (0-4); Sodium 136 mmol/L (136-145); Total Protein 7.0 g/dL (6.6-8.7)
== END 2025-06-29 23:59 | disposition home or self-care (01) ==
PROVIDERS: Nurse Practitioner Family; PCP Family Medicine; Visit Provider Internal Medicine Medical Oncology
DX: C61 Malignant neoplasm of prostate (principal)
CPT/HCPCS: 36415; 80053; 84153; 85025

== ENCOUNTER 2025-09-14 12:00 | Oncology outpatient (recurring) (ONCR) | payer BC, SELFPAY ==
[2025-09-14 12:26] LABS: Hematocrit 40.9 % (37-53); Hemoglobin 14.30 g/dL (11.27-16.99); Mean Corpuscular HGB Conc 35.0 g/dL (30-55); Mean Corpuscular Hemoglobin 30.6 pg (27-33); Mean Corpuscular Volume 87.6 fl (82-101); Nucleated Red Blood Cells % 0 %; Platelet Count 161 10^3/cmm (157-399); Red Blood Count 4.67 10^6/uL (3.85-5.65); White Blood Count 7.63 10^3/uL (3.29-11.43)
[2025-09-14 12:50] LABS: Alanine Aminotransferase 32 U/L (0-41); Albumin Level 4.3 g/dL (3.5-5.2); Alkaline Phosphatase 98 U/L (40-130); Anion Gap 18.7 (5-19); Aspartate Amino Transferase 21 U/L (0-40); Blood Urea Nitrogen 15 mg/dL (8-23); Calcium 9.3 mg/dL (8.5-10.5); Carbon Dioxide 23 mmol/L (22-29); Chloride 96 mmol/L (98-107); Globulin 2.1 g/dL (1.3-4.6); Osmolality Calculated 303 mOsm/kg (285-295); Potassium 4.7 mmol/L (3.5-5.1); Prostate Specific Antigen 0.238 ng/mL (0-4); Sodium 133 mmol/L (136-145); Total Protein 6.4 g/dL (6.6-8.7)
[2025-09-14 12:57] LABS: Glucose 573 mg/dL (65-115)
== END 2025-09-29 23:59 | disposition home or self-care (01) ==
PROVIDERS: Nurse Practitioner Family; PCP Family Medicine; Visit Provider Nurse Practitioner
DX: C61 Malignant neoplasm of prostate (principal)
CPT/HCPCS: 80053; 84153; 85025